=== PATIENT | male | born 1995 | race Caucasian/White ===

== ENCOUNTER → 2017-03-28 | Outpatient (CLI) | payer OTHER ==
--- NOTE | 2017-03-28 10:32 | DIAGNOSTIC IMAGING REPORT ---
R ANKLE MIN 3 VIEWS ROUTINE HISTORY: 21 years-old Male RIGHT ANKLE INJURY acute right ankle pain status post twisting injury COMPARISON: None available TECHNIQUE: 3 views of the right ankle FINDINGS: No acute fracture or dislocation of the right ankle. Transversely oriented lucency involving the base of the fifth metatarsal with peripherally sclerotic margins noted. Mild soft tissue swelling about the ankle with small joint effusion. IMPRESSION: 1. Mild soft tissue swelling and small joint effusion of the ankle without acute fracture or dislocation. 2. Peripherally sclerotic transversely oriented lucency of the fifth metatarsal base is suspicious for a subacute or chronic fracture. Correlate with patient history and point tenderness. The above report was generated using voice recognition software. It may contain grammatical, syntax or spelling errors. Electronically signed by: Shaggy Mariano M.D. 03/28/2017 10:31 AM Dictated Date/Time: 03/28/2017 10:29 AM
== END | disposition home or self-care (01) ==
LOC: C.RAD 09:56
PROVIDERS: ATTEND Physician Assistant Surgical
DX: S99.911A Unspecified injury of right ankle, initial encounter (principal); X58.XXXA Exposure to other specified factors, initial encounter